=== PATIENT | male | born 1980 | race Caucasian/White ===

== ENCOUNTER 2017-01-20 09:10 | Emergency (ER) | payer SELFPAY ==
[~2017-01-20] VITALS: Ht 177.8 cm; Wt 81.8 kg
[2017-01-20 09:18] VITALS: TEMP 97.8
[2017-01-20 09:43] LABS: BASO # 0.1 (0.0-0.2); EOS # 0.9 (0.0-0.7); GRAN # 8.1 (1.4-6.5); GRAN % 68.6 % (42.2-75.2); HEMATOCRIT 46.5 % (42.0-52.0); HEMOGLOBIN 15.8 g/dl (13.5-18.0); LYMPH # 1.8 (1.2-3.4); LYMPH % 15.1 % (20.0-51.0); MEAN CELL VOLUME 87 fl (80.0-100.0); MEAN CORPUSCULAR HEMOGLOBIN 30 pg (27.0-31.0); MEAN CORPUSCULAR HGB CONC 34 g/dl (33.0-37.0); MEAN PLATELET VOLUME 9.1 fl (7.4-10.4); MONO # 0.8 (0.1-0.6); MONO % 6.7 % (1.7-9.3); PLATELET COUNT 265 K/mm3 (130-400); RED BLOOD COUNT 5.32 M/mm3 (4.20-5.60); REDCELL DISTRIBUTION WIDTH-CV 12.4 % (11.5-14.5); WHITE BLOOD COUNT 11.8 K/mm3 (4.8-10.8)
[2017-01-20 09:54] LABS: ADJUSTED CALCIUM 9.6 mg/dL (8.4-10.2); ALANINE AMINOTRANSFERASE 21 U/L (21-72); ALBUMIN 4.6 gm/dL (3.5-5.0); ALKALINE PHOSPHATASE 68 U/L (50-136); ANION GAP 8 mmol/L (7-16); BILIRUBIN,TOTAL 0.9 mg/dL (0.0-1.0); BLOOD UREA NITROGEN 15 mg/dL (9-20); C-REACTIVE PROTEIN < 0.5 mg/dL (0.0-0.9); CALCIUM 10.1 mg/dL (8.4-10.2); CARBON DIOXIDE 27 mmol/L (22-30); CHLORIDE 101 mmol/L (98-107); CREATININE, serum 1.21 mg/dL (0.66-1.25); GLUCOSE 84 mg/dL (74-106); LIPASE 139 U/L (23-300); POTASSIUM 4.5 mmol/L (3.4-5.0); SODIUM 137 mmol/L (137-145); TOTAL PROTEIN 7.8 gm/dL (6.4-8.2)
[2017-01-20 10:03] LABS: B-TYPE NATRIURETIC PEPTIDE 55 pg/mL (0-125)
[2017-01-20 10:12] LABS: TROPONIN-I < 0.012 ng/mL (0.000-0.034)
[2017-01-20] MEDS ORDERED: MOTRIN 800800 MG/TAB PO (11:23)
[2017-01-20] MEDS ORDERED: NORCO 325 MG-51 TAB PO (11:23)
[2017-01-20 11:36] VITALS: BP 120/74; PULSE 71
== END 2017-01-20 11:39 | disposition home or self-care (01) ==
LOC: COL.ER 09:10
PROVIDERS: Emergency Medicine
DX: R07.89 Other chest pain (principal); F17.210 Nicotine dependence, cigarettes, uncomplicated

== ENCOUNTER 2017-09-02 17:05 | Emergency (ER) | payer SELFPAY ==
[~2017-09-02] VITALS: Ht 177.8 cm; Wt 81.8 kg
[~2017-09-02 17:05] MED LIST: MOTRIN 800800 MG/TAB PO; NORCO 325 MG-51 TAB PO
[2017-09-02 17:08] VITALS: BP 139/74; PULSE 98; TEMP 97.4
[2017-09-02] MEDS ORDERED: NORCO 325 MG-51 TAB PO (17:34)
[2017-09-02] MEDS ORDERED: FLEXERIL 1010 MG/TAB PO (17:34)
[2017-09-02] MEDS ORDERED: MEDROL 4MG DOSPA4 MG PO (17:34)
== END 2017-09-02 18:07 | disposition home or self-care (01) ==
LOC: COL.ER 17:05
DX: S33.5XXA Sprain of ligaments of lumbar spine, initial encounter (principal); F17.210 Nicotine dependence, cigarettes, uncomplicated; Z90.89 Acquired absence of other organs; Z98.890 Other specified postprocedural states; X50.0XXA Overexertion from strenuous movement or load, initial encounter; Y92.69 Other specified industrial and construction area as the place of occurrence of the external cause; Y99.0 Civilian activity done for income or pay
CPT/HCPCS: J7512

== ENCOUNTER 2018-07-09 10:31 | Emergency (ER) | payer SELFPAY ==
[~2018-07-09] VITALS: Ht 180.3 cm; Wt 81.8 kg
[~2018-07-09 10:31] MED LIST changes: +FLEXERIL 1010 MG/TAB PO; +MEDROL 4MG DOSPA4 MG PO
[2018-07-09 10:35] VITALS: TEMP 98.3
[2018-07-09 11:26] LABS: HEMATOCRIT 48.8 % (42.0-52.0); HEMOGLOBIN 16.1 g/dl (13.5-18.0); MEAN CELL VOLUME 90 fl (80.0-100.0); MEAN CORPUSCULAR HEMOGLOBIN 30 pg (27.0-31.0); MEAN CORPUSCULAR HGB CONC 33 g/dl (33.0-37.0); MEAN PLATELET VOLUME 8.6 fl (7.4-10.4); PLATELET COUNT 288 K/mm3 (130-400); RED BLOOD COUNT 5.44 M/mm3 (4.20-5.60); REDCELL DISTRIBUTION WIDTH-CV 13.2 % (11.5-14.5)
[2018-07-09 11:41] LABS: ALANINE AMINOTRANSFERASE 58 U/L (21-72); ALBUMIN 4.2 gm/dL (3.5-5.0); ALKALINE PHOSPHATASE 58 U/L (50-136); ANION GAP 4 mmol/L (7-16); AST,SGOT 54 U/L (15-37); BILIRUBIN,TOTAL 0.5 mg/dL (0.0-1.0); BLOOD UREA NITROGEN 17 mg/dL (9-20); CALCIUM 9.8 mg/dL (8.4-10.2); CARBON DIOXIDE 34 mmol/L (22-30); CHLORIDE 98 mmol/L (98-107); CREATININE, serum 1.16 mg/dL (0.66-1.25); GLUCOSE 81 mg/dL (74-106); LIPASE 347 U/L (23-300); POTASSIUM 4.7 mmol/L (3.4-5.0); SODIUM 135 mmol/L (137-145); TOTAL PROTEIN 7.4 gm/dL (6.4-8.2)
[2018-07-09 11:57] LABS: C-REACTIVE PROTEIN 0.5 mg/dL (0.0-0.9); TROPONIN-I < 0.012 ng/mL (0.000-0.034)
[2018-07-09 12:09] LABS: BAND 6 % (0-10); BASOPHIL 2 % (0-2); EOSINOPHIL 5 % (0-4); NEUTROPHILS 63 % (42.0-75.2)
[2018-07-09 12:10] LABS: LYMPHOCYTE 21 % (20.0-51.0); PLATELET ESTIMATE NORMAL (NORMAL)
[2018-07-09] MEDS ORDERED: NORCO 325 MG-51 TAB PO (12:43)
[2018-07-09] MEDS ORDERED: MEDROL 4MG DOSPA4 MG PO (12:43)
[2018-07-09 12:56] VITALS: BP 111/76; PULSE 84
== END 2018-07-09 13:20 | disposition home or self-care (01) ==
LOC: COL.ER 10:31
PROVIDERS: Emergency Medicine
DX: M25.511 Pain in right shoulder (principal)
CPT/HCPCS: J2405; J3010; J7512

== ENCOUNTER 2018-07-13 10:23 | Emergency (ER) | payer SELFPAY ==
[~2018-07-13] VITALS: Ht 177.8 cm; Wt 81.8 kg
[2018-07-13 10:30] VITALS: TEMP 97.3
[2018-07-13] MEDS ORDERED: FLEXERIL 1010 MG/TAB PO (10:55)
[2018-07-13] MEDS ORDERED: NEURONTIN300 MG/CAP PO (10:55)
[2018-07-13] MEDS ORDERED: NORCO 325 MG-51 TAB PO (10:55)
[2018-07-13 11:07] LABS: BASO # 0.1 (0.0-0.2); BASO % 0.7 % (0.0-2.0); EOS # 0.2 (0.0-0.7); EOS % 1.2 % (0-4.0); GRAN # 10.6 (1.4-6.5); GRAN % 78.1 % (42.2-75.2); HEMATOCRIT 45.6 % (42.0-52.0); HEMOGLOBIN 15.4 g/dl (13.5-18.0); LYMPH # 1.7 (1.2-3.4); LYMPH % 12.8 % (20.0-51.0); MEAN CELL VOLUME 87 fl (80.0-100.0); MEAN CORPUSCULAR HEMOGLOBIN 30 pg (27.0-31.0); MEAN CORPUSCULAR HGB CONC 34 g/dl (33.0-37.0); MEAN PLATELET VOLUME 8.5 fl (7.4-10.4); MONO # 0.7 (0.1-0.6); MONO % 5.4 % (1.7-9.3); PLATELET COUNT 286 K/mm3 (130-400); RED BLOOD COUNT 5.22 M/mm3 (4.20-5.60); REDCELL DISTRIBUTION WIDTH-CV 13.2 % (11.5-14.5)
[2018-07-13 11:16] LABS: ALANINE AMINOTRANSFERASE 46 U/L (21-72); ALBUMIN 4.3 gm/dL (3.5-5.0); ALKALINE PHOSPHATASE 61 U/L (50-136); ANION GAP 9 mmol/L (7-16); AST,SGOT 29 U/L (15-37); BILIRUBIN,TOTAL 0.7 mg/dL (0.0-1.0); BLOOD UREA NITROGEN 19 mg/dL (9-20); CALCIUM 9.8 mg/dL (8.4-10.2); CARBON DIOXIDE 29 mmol/L (22-30); CHLORIDE 99 mmol/L (98-107); CREATININE, serum 0.98 mg/dL (0.66-1.25); GLUCOSE 87 mg/dL (74-106); LIPASE 101 U/L (23-300); POTASSIUM 5.1 mmol/L (3.4-5.0); SODIUM 138 mmol/L (137-145); TOTAL PROTEIN 7.5 gm/dL (6.4-8.2)
[2018-07-13 11:29] LABS: TROPONIN-I < 0.012 ng/mL (0.000-0.034)
[2018-07-13 11:39] VITALS: BP 131/77; PULSE 79
== END 2018-07-13 11:39 | disposition home or self-care (01) ==
LOC: COL.ER 10:23
PROVIDERS: Emergency Medicine
DX: R07.81 Pleurodynia (principal); M54.2 Cervicalgia; F17.210 Nicotine dependence, cigarettes, uncomplicated

== ENCOUNTER 2018-07-16 09:01 | Emergency (ER) | payer SELFPAY ==
[~2018-07-16] VITALS: Ht 180.3 cm; Wt 80.9 kg
[~2018-07-16 09:01] MED LIST changes: +NEURONTIN300 MG/CAP PO
[2018-07-16 09:05] VITALS: TEMP 97.5
[2018-07-16 10:15] VITALS: BP 130/77; PULSE 106
[2018-07-16] MEDS ORDERED: LIDODERM 5% PATC1 EA TP (10:57)
== END 2018-07-16 10:15 | disposition home or self-care (01) ==
LOC: COL.ER 09:01
DX: M54.12 Radiculopathy, cervical region (principal); F17.210 Nicotine dependence, cigarettes, uncomplicated

== ENCOUNTER 2018-07-28 09:17 | Emergency (ER) | payer SELFPAY ==
[~2018-07-28] VITALS: Ht 154.9 cm; Wt 81.8 kg
[~2018-07-28 09:17] MED LIST changes: +LIDODERM 5% PATC1 EA TP
[2018-07-28 09:22] VITALS: BP 128/78
[2018-07-28] MEDS ORDERED: NORCO 325 MG-51 TAB PO (10:19)
[2018-07-28] MEDS ORDERED: FLEXERIL 1010 MG/TAB PO (10:19)
[2018-07-28] MEDS ORDERED: MEDROL 4MG DOSPA4 MG PO (10:19)
[2018-07-28 10:32] VITALS: PULSE 90; TEMP 96.8
== END 2018-07-28 10:33 | disposition home or self-care (01) ==
LOC: COL.ER 09:17
DX: M25.511 Pain in right shoulder (principal); G89.29 Other chronic pain; M54.9 Dorsalgia, unspecified; F17.210 Nicotine dependence, cigarettes, uncomplicated